=== PATIENT | female | born 1970 | race Caucasian/White ===

== ENCOUNTER → 2020-10-28 | Outpatient (CLI) | payer OTHER ==
[~2020-10-28] MED LIST: BACL-19 PO; BENA40TA3 PO; BIOT10004 PO; CHOL10003 PO; FURO-93 PO; LEVO75TA5 PO; MONT10TA17 PO; PREG50CA PO; vicoprofen PO
[2020-10-28 15:34] LABS: MICROSCOPIC NOT IND
[2020-10-28 15:44] LABS: BASOPHILS % (AUTO) 1 % (0-1); EOSINOPHILS % (AUTO) 2 % (1-7); LYMPHOCYTES % (AUTO) 32 % (22-44); MEAN CORPUSCULAR HEMOGLOBIN 28.7 pg (27.0-34.8); MEAN CORPUSCULAR HGB CONC 33.7 g/dL (32.4-35.8); MEAN PLATELET VOLUME 10.4 fL (7.4-10.4); MONOCYTES % (AUTO) 6 % (2-9); NEUTROPHILS % (AUTO) 59 % (42-75); PLATELET COUNT 180 x10^3/uL (130-400); RED BLOOD COUNT 5.29 x10^6/uL (3.82-5.3); RED CELL DISTRIBUTION WIDTH 14.3 % (9.6-15.2)
[2020-10-28 15:45] LABS: ALANINE AMINOTRANSFERASE 30 U/L (12-78); ALBUMIN 3.3 g/dL (3.4-5.0); ANION GAP 9 mmol/L (5-15); CALCIUM 9.6 mg/dL (8.5-10.1); CHLORIDE 107 mmol/L (98-107); CREATININE 0.72 mg/dL (0.55-1.02)
[2020-10-28 15:47] LABS: ALKALINE PHOSPHATASE 85 U/L (45-117); BILIRUBIN,TOTAL 0.5 mg/dL (0.2-1.0); TOTAL PROTEIN 7.2 g/dL (6.4-8.2)
[2020-10-28 16:13] LABS: INTERNATIONAL NORMALIZED RATIO 1.01 (0.93-1.1); PROTHROMBIN TIME 10.8 Seconds (9.6-11.5)
== END | disposition home or self-care (01) ==
LOC: STAR 14:24
PROVIDERS: ATTEND Neurological Surgery
DX: Z01.810 Encounter for preprocedural cardiovascular examination (principal); Z01.811 Encounter for preprocedural respiratory examination; Z01.812 Encounter for preprocedural laboratory examination; M54.16 Radiculopathy, lumbar region; R79.1 Abnormal coagulation profile; M43.16 Spondylolisthesis, lumbar region; R82.90 Unspecified abnormal findings in urine; R94.31 Abnormal electrocardiogram [ECG] [EKG]; R00.1 Bradycardia, unspecified
CPT/HCPCS: 36415; 71046; 80053; 81003; 83036; 85025; 85610; 85730; 93005

== ENCOUNTER 2020-11-10 08:47 | Inpatient (IN) | payer OTHER ==
[~2020-11-10] VITALS: Ht 170.2 cm; Wt 100.4 kg
[~2020-11-10 08:47] MED LIST changes: +CEFAZOLIN 1,000 MG ONE; +EPINEPHRINE 1 MG/ML, 1ML ONE; +VANCOMYCIN 1,000 MG ONE
[2020-11-10 09:24] VITALS: BP 143/95
[2020-11-10] MEDS ORDERED: LACTATED RINGERS 1,000 ML IV SCH (10:00)
[2020-11-10] MEDS ORDERED: CHLORHEXIDINE 15 ML UDC PO ONE (10:00)
[2020-11-10 10:08] LABS: HCG UR SG 1.023 (1.003-1.030)
[2020-11-10] MEDS ORDERED: FENTANYL PF 100 MCG/2ML ONE ×3 (10:41→13:29)
[2020-11-10] MEDS ORDERED: MIDAZOLAM 1 MG/ML, 2ML ONE (10:41)
[2020-11-10] MEDS ORDERED: PROPOFOL 10 MG/ML, 20ML ONE (10:51)
[2020-11-10] MEDS ORDERED: NEOSTIGMINE 1 MG/ML, 10ML ONE (10:51)
[2020-11-10] MEDS ORDERED: PROPOFOL 50 ML ONE ×3 (10:51→12:22)
[2020-11-10] MEDS ORDERED: ROCURONIUM 10MG/ML,5ML ONE (10:51)
[2020-11-10] MEDS ORDERED: SUCCINYLCHOLINE 20 MG/ML, 10ML ONE (10:51)
[2020-11-10] MEDS ORDERED: CEFAZOLIN 1,000 MG ONE (10:51)
[2020-11-10] MEDS ORDERED: GLYCOPYRROLATE 0.2MG/1ML, 5ML ONE (10:51)
[2020-11-10] MEDS ORDERED: ONDANSETRON 2MG/ML, 2ML ONE (10:51)
[2020-11-10] MEDS ORDERED: DEXAMETHASONE 4 MG/ML, 1ML ONE (10:51)
[2020-11-10] MEDS ORDERED: OXYcodone 5 MG/5 ML ORAL.SOL UDC PO PRN (11:00)
[2020-11-10] MEDS ORDERED: METHOCARBAMOL 1,000 MG in DEXTROSE 5% 100 ML IV PRN (11:00)
[2020-11-10] MEDS ORDERED: ACETAMINOPHEN 325 MG TABLET PO PRN (11:00)
[2020-11-10] MEDS ORDERED: HYDROcodone/APAP 7.5-325MG/15ML UDC PO PRN (11:00)
[2020-11-10] MEDS ORDERED: PROMETHAZINE 25 MG/ML, 1ML IVPush PRN (11:00)
[2020-11-10] MEDS ORDERED: ONDANSETRON 2MG/ML, 2ML IVPush PRN ×2 (11:00→13:30)
[2020-11-10] MEDS: BUPIVACAINE/PF 0.5% ONE (12:18)
[2020-11-10] MEDS: GENTAMICIN 80 MG/2 ML ONE (12:20)
[2020-11-10] MEDS ORDERED: ALBUTEROL HFA 90 MCG/SPRAY ONE (13:10)
[2020-11-10] MEDS ORDERED: morphine SULFATE 10 MG/ML, 1ML ONE ×2 (13:29→14:16)
[2020-11-10] MEDS ORDERED: morphine SULFATE 10 MG/ML, 1ML IVPush PRN (13:30)
[2020-11-10] MEDS ORDERED: FUROSEMIDE 20 MG TABLET PO PRN (13:30)
[2020-11-10] MEDS ORDERED: MAGNESIUM HYDROXIDE 8%, 30ML UDC PO PRN (13:30)
[2020-11-10] MEDS ORDERED: BISACODYL 10 MG SUPP PR PRN (13:30)
[2020-11-10] MEDS ORDERED: NICOTINE 21 MG/24 HR PATCH.TD24 TD ONE (13:30)
[2020-11-10] MEDS ORDERED: DIPHENHYDRAMINE 50 MG/ML, 1ML IM PRN (13:30)
[2020-11-10] MEDS ORDERED: METHOCARBAMOL 1,000 MG in DEXTROSE 5% 100 ML IV ONE (13:30)
[2020-11-10] MEDS: FENTANYL PF 100 MCG/2ML IV PRN ×2 (13:30→13:35)
[2020-11-10] MEDS ORDERED: DIAZEPAM 5 MG/ML, 2ML ONE (13:30)
[2020-11-10] MEDS ORDERED: HYDROcodone/APAP 10/325 MG TABLET PO PRN (13:30)
[2020-11-10] MEDS ORDERED: DIPHENHYDRAMINE 50 MG CAPSULE PO PRN (13:30)
[2020-11-10] MEDS ORDERED: OXYcodone 5 MG/5 ML ORAL.SOL UDC ONE (13:30)
[2020-11-10] MEDS ORDERED: DIPHENHYDRAMINE 50 MG/ML, 1ML IVPush PRN (13:30)
[2020-11-10] MEDS ORDERED: SENNA/DOCUSATE TABLET PO PRN (13:30)
[2020-11-10] MEDS ORDERED: LABETALOL 5MG/ML, 20ML IVPush PRN (13:30)
[2020-11-10] MEDS ORDERED: PROMETHAZINE 25 MG/ML, 1ML IM PRN (13:30)
[2020-11-10] MEDS ORDERED: PHARMACY MAY ADJ FOR RENAL FX MC PRN (13:30)
[2020-11-10] MEDS: DIAZEPAM 5 MG/ML, 2ML IVPush PRN ×2 (13:35→13:50)
[2020-11-10] MEDS: morphine SULFATE 10 MG/ML, 1ML IVPush PRN ×2 (13:45→13:50)
[2020-11-10] MEDS ORDERED: D5%-0.9% NACL+KCL 20MEQ 1,000 ML IV SCH (15:30)
[2020-11-10] MEDS ORDERED: CEFAZOLIN PMX 1GM/50ML 50 ML IVPB SCH (16:00)
[2020-11-10] MEDS ORDERED: MONTELUKAST 10 MG TABLET PO SCH (21:00)
[2020-11-10] MEDS ORDERED: PREGABALIN 50 MG CAP PO SCH (21:00)
[2020-11-10] MEDS ORDERED: BENAZEPRIL 20 MG TABLET PO SCH (21:00)
[2020-11-10] MEDS ORDERED: LEVOTHYROXINE 75 MCG TABLET PO SCH (21:00)
[2020-11-10] MEDS ORDERED: METHOCARBAMOL 750 MG in DEXTROSE 5% 100 ML IV PRN (21:30)
[2020-11-11] MEDS: BUPIVACAINE/PF 0.5% ONE (13:24)
[2020-11-11] MEDS: GENTAMICIN 80 MG/2 ML ONE (13:24)
[2020-11-12] MEDS ORDERED: METHOCARBAMOL 750 MG TABLET PO SCH (21:30)
== END 2020-11-10 15:25 | disposition home or self-care (01) | DRG 460 ==
LOC: ORIP 08:47 → 4NE 14:53
PROVIDERS: ADMIT Neurological Surgery; ATTEND Neurological Surgery
PROC: 0SG00K0 Fusion of Lumbar Vertebral Joint with Nonautologous Tissue Substitute, Anterior Approach, Anterior Column, Open Approach (ICD-10-PCS; 2020-11-10)
PROC: 4A11X4G Monitoring of Peripheral Nervous Electrical Activity, Intraoperative, External Approach (ICD-10-PCS; 2020-11-10)
PROC: 0SG00A0 Fusion of Lumbar Vertebral Joint with Interbody Fusion Device, Anterior Approach, Anterior Column, Open Approach (ICD-10-PCS; principal; 2020-11-10 11:00)
DX: M43.16 Spondylolisthesis, lumbar region (principal); M51.16 Intervertebral disc disorders with radiculopathy, lumbar region; M53.2X6 Spinal instabilities, lumbar region
CPT/HCPCS: 72100; S0020; 81025; 82962; 86850; 86900; G0378; J0171; J0690; J1100; J2250; J2405; J2704; J2710; J3010; J3360; J3370; J0330; J1580; J2270; J2800; J7120

== ENCOUNTER 2020-11-10 15:30 | Inpatient (IN) | payer OTHER ==
[~2020-11-10] VITALS: Ht 162.6 cm; Wt 111.7 kg
[~2020-11-10 15:30] MED LIST changes: -CEFAZOLIN 1,000 MG ONE; -EPINEPHRINE 1 MG/ML, 1ML ONE; -VANCOMYCIN 1,000 MG ONE
[2020-11-10] MEDS ORDERED: ONDANSETRON 2MG/ML, 2ML IVPush PRN (16:30)
[2020-11-10] MEDS ORDERED: LABETALOL 5MG/ML, 20ML IVPush PRN (16:30)
[2020-11-10] MEDS ORDERED: NICOTINE 21 MG/24 HR PATCH.TD24 TD ONE (16:30)
[2020-11-10] MEDS ORDERED: PHARMACY MAY ADJ FOR RENAL FX MC PRN (16:30)
[2020-11-10] MEDS ORDERED: DIPHENHYDRAMINE 50 MG/ML, 1ML IM PRN (16:30)
[2020-11-10] MEDS ORDERED: MAGNESIUM HYDROXIDE 8%, 30ML UDC PO PRN (16:30)
[2020-11-10] MEDS ORDERED: morphine SULFATE/PF 0.5 MG/ML, 10ML IV PRN (16:30)
[2020-11-10] MEDS ORDERED: DIPHENHYDRAMINE 50 MG/ML, 1ML IVPush PRN (16:30)
[2020-11-10] MEDS: D5%-0.9% NACL+KCL 20MEQ 1,000 ML IV SCH (16:30)
[2020-11-10] MEDS ORDERED: DIPHENHYDRAMINE 50 MG CAPSULE PO PRN (16:30)
[2020-11-10] MEDS ORDERED: HYDROmorphone 1 MG/ML, 1ML INJ IVPush PRN (16:30)
[2020-11-10] MEDS ORDERED: SENNA/DOCUSATE TABLET PO PRN (16:30)
[2020-11-10] MEDS ORDERED: BISACODYL 10 MG SUPP PR PRN (16:30)
[2020-11-10] MEDS ORDERED: PROMETHAZINE 25 MG/ML, 1ML IM PRN (16:30)
[2020-11-10] MEDS ORDERED: METHOCARBAMOL 750 MG TABLET PO PRN (16:30)
--- NOTE | 2020-11-10 17:15 | NUR ---
PT APPARENTLY LEFT SURGICAL FLOOR POST BACK SURGERY. PT RETURNED TO ER AND ASKED TO STAY. ADMIT ORDER PUT IN ON PT BY DR. JASON CAMPA. PT TAKEN DIRECTLY BACK TO FLOOR
[2020-11-10] MEDS: HYDROcodone/APAP 10/325 MG TABLET PO PRN ×2 (19:18→20:05)
[2020-11-10 19:33] VITALS: BP 123/76
[2020-11-10] MEDS: CEFAZOLIN PMX 1GM/50ML 50 ML IVPB SCH (19:51)
[2020-11-10] MEDS: SODIUM CHLORIDE FLUSH 10ML SYR IVF SCH (21:00)
[2020-11-10] MEDS: PREGABALIN 25 MG CAPSULE PO SCH (22:28)
[2020-11-10] MEDS: BENAZEPRIL 20 MG TABLET PO SCH (22:28)
[2020-11-10] MEDS: MONTELUKAST 10 MG TABLET PO SCH (22:28)
[2020-11-10] MEDS: LEVOTHYROXINE 75 MCG TABLET PO SCH (22:29)
[2020-11-11] VITALS: BP 107/84
[2020-11-11] MEDS: morphine SULFATE 10 MG/ML, 1ML IVPush PRN ×6 (00:10→20:48)
[2020-11-11] MEDS: CEFAZOLIN PMX 1GM/50ML 50 ML IVPB SCH ×2 (03:39→20:48)
[2020-11-11 03:41] VITALS: BP 104/57
[2020-11-11] MEDS ORDERED: GENTAMICIN 80 MG/2 ML ONE (06:43)
[2020-11-11] MEDS ORDERED: BUPIVACAINE/PF 0.5% ONE (06:43)
[2020-11-11] MEDS ORDERED: EPINEPHRINE 1 MG/ML, 1ML ONE (06:43)
[2020-11-11] MEDS ORDERED: VANCOMYCIN 1,000 MG ONE (06:43)
[2020-11-11 07:45] VITALS: BP 93/57
[2020-11-11] MEDS: SODIUM CHLORIDE FLUSH 10ML SYR IVF SCH ×2 (09:00→20:45)
[2020-11-11] MEDS: D5%-0.9% NACL+KCL 20MEQ 1,000 ML IV SCH (11:03)
[2020-11-11] MEDS ORDERED: PROPOFOL 100 ML ONE (11:58)
[2020-11-11] MEDS ORDERED: FENTANYL PF 250 MCG/5ML ONE (11:58)
[2020-11-11] MEDS ORDERED: CHLORHEXIDINE 15 ML UDC ONE (12:11)
[2020-11-11] MEDS ORDERED: DEXMEDETOMIDINE 200 MCG/2 ML ONE (12:31)
[2020-11-11] MEDS ORDERED: HALOPERIDOL 5 MG/ML IV PRN (14:00)
[2020-11-11] MEDS ORDERED: LABETALOL 5MG/ML, 20ML IV PRN (14:00)
[2020-11-11] MEDS ORDERED: hydrALAzine 20 MG/ML, 1ML IV PRN (14:00)
[2020-11-11] MEDS ORDERED: METOPROLOL 1 MG/ML, 5ML IV PRN (14:00)
[2020-11-11] MEDS ORDERED: ALBUTEROL/IPRATROPIUM 2.5MG/0.5MG, 3 ML NPPB PRN (14:00)
[2020-11-11] MEDS ORDERED: ONDANSETRON 2MG/ML, 2ML IVPush PRN (14:00)
[2020-11-11] MEDS ORDERED: METHOCARBAMOL 1,000 MG in DEXTROSE 5% 100 ML IV PRN (14:00)
[2020-11-11] MEDS ORDERED: HYDROmorphone 1 MG/ML, 1ML INJ IVPush PRN (14:00)
[2020-11-11] MEDS ORDERED: LORazepam 2 MG/ML, 1ML IVPush PRN (14:00)
[2020-11-11] MEDS ORDERED: OXYcodone 5 MG/5 ML ORAL.SOL UDC PO PRN (14:00)
[2020-11-11] MEDS ORDERED: FENTANYL PF 100 MCG/2ML IV PRN (14:00)
[2020-11-11] MEDS ORDERED: PROMETHAZINE 25 MG/ML, 1ML IVPush PRN (14:00)
[2020-11-11] MEDS ORDERED: PROMETHAZINE 25 MG SUPP PR PRN (14:00)
[2020-11-11] MEDS ORDERED: MEPERIDINE/PF 25MG/0.5ML IVPush PRN (14:00)
[2020-11-11] MEDS ORDERED: ACETAMINOPHEN 325 MG TABLET PO PRN (14:00)
[2020-11-11] MEDS ORDERED: FENTANYL PF 100 MCG/2ML ONE (14:36)
[2020-11-11] MEDS ORDERED: DIAZEPAM 5 MG/ML, 2ML ONE (14:36)
[2020-11-11] MEDS ORDERED: HYDROmorphone 2 MG/ML, 1ML ONE (14:36)
[2020-11-11] MEDS ORDERED: OXYcodone 5 MG/5 ML ORAL.SOL UDC ONE (14:37)
[2020-11-11] MEDS ORDERED: CEFAZOLIN 1,000 MG ONE (14:47)
[2020-11-11] MEDS ORDERED: SUCCINYLCHOLINE 20 MG/ML, 10ML ONE (14:47)
[2020-11-11] MEDS ORDERED: PROPOFOL 10 MG/ML, 20ML ONE (14:47)
[2020-11-11] MEDS ORDERED: GLYCOPYRROLATE 0.2MG/1ML, 5ML ONE (14:47)
[2020-11-11] MEDS ORDERED: NEOSTIGMINE 1 MG/ML, 10ML ONE (14:47)
[2020-11-11] MEDS ORDERED: ONDANSETRON 2MG/ML, 2ML ONE (14:47)
[2020-11-11] MEDS ORDERED: DEXAMETHASONE 4 MG/ML, 1ML ONE (14:47)
[2020-11-11] MEDS ORDERED: ROCURONIUM 10MG/ML,5ML ONE (14:47)
[2020-11-11] MEDS ORDERED: morphine SULFATE 10 MG/ML, 1ML ONE (14:55)
[2020-11-11] MEDS ORDERED: METHOCARBAMOL 1,000 MG in DEXTROSE 5% 100 ML IV ONE (15:00)
[2020-11-11] MEDS ORDERED: PROMETHAZINE 25 MG/ML, 1ML IM PRN (15:00)
[2020-11-11] MEDS ORDERED: morphine SULFATE 10 MG/ML, 1ML IVPush PRN (15:00)
[2020-11-11] MEDS ORDERED: MAGNESIUM HYDROXIDE 8%, 30ML UDC PO PRN (15:00)
[2020-11-11] MEDS ORDERED: DIPHENHYDRAMINE 50 MG/ML, 1ML IM PRN (15:00)
[2020-11-11] MEDS ORDERED: KETOROLAC 30 MG/1 ML IVPush ONE (15:00)
[2020-11-11] MEDS ORDERED: DIPHENHYDRAMINE 50 MG CAPSULE PO PRN (15:00)
[2020-11-11] MEDS ORDERED: PHARMACY MAY ADJ FOR RENAL FX MC PRN (15:00)
[2020-11-11] MEDS ORDERED: DIPHENHYDRAMINE 50 MG/ML, 1ML IVPush PRN (15:00)
[2020-11-11] MEDS ORDERED: LABETALOL 5MG/ML, 20ML IVPush PRN (15:00)
[2020-11-11] MEDS ORDERED: BISACODYL 10 MG SUPP PR PRN (15:00)
[2020-11-11] MEDS ORDERED: DIAZEPAM 5 MG/ML, 2ML IVPush PRN (15:30)
[2020-11-11] MEDS ORDERED: ENOXAPARIN 40 MG/0.4 ML SQ SCH (15:30)
[2020-11-11] MEDS: INSULIN REGULAR 100 UNITS/ML, 3ML VIAL SQ-INSULIN PRN (16:43)
[2020-11-11] MEDS ORDERED: HYDROmorphone 1 MG/ML, 1ML INJ ONE (18:48)
[2020-11-11 19:33] VITALS: BP 102/55
[2020-11-11] MEDS: LEVOTHYROXINE 75 MCG TABLET PO SCH (20:46)
[2020-11-11] MEDS: MONTELUKAST 10 MG TABLET PO SCH (20:46)
[2020-11-11] MEDS: BENAZEPRIL 20 MG TABLET PO SCH (21:00)
[2020-11-11] MEDS: PREGABALIN 25 MG CAPSULE PO SCH (21:41)
[2020-11-11] MEDS ORDERED: METHOCARBAMOL 750 MG in DEXTROSE 5% 100 ML IV PRN (23:00)
[2020-11-12 00:17] VITALS: BP 113/67
[2020-11-12] MEDS: morphine SULFATE 10 MG/ML, 1ML IVPush PRN ×4 (01:45→13:17)
[2020-11-12] MEDS: BENAZEPRIL 20 MG TABLET PO SCH (01:46)
[2020-11-12 02:14] VITALS: BP 117/68
[2020-11-12 04:24] VITALS: BP 113/66
[2020-11-12] MEDS: CEFAZOLIN PMX 1GM/50ML 50 ML IVPB SCH (05:16)
[2020-11-12] MEDS: D5%-0.9% NACL+KCL 20MEQ 1,000 ML IV SCH (07:05)
[2020-11-12] MEDS: INSULIN REGULAR 100 UNITS/ML, 3ML VIAL SQ-INSULIN PRN (07:06)
[2020-11-12] MEDS: SODIUM CHLORIDE FLUSH 10ML SYR IVF SCH (08:08)
[2020-11-12 08:12] VITALS: BP 108/63
[2020-11-12] MEDS: HYDROcodone/APAP 10/325 MG TABLET PO PRN (08:13)
[2020-11-12] MEDS ORDERED: OXYC1TAB17 PO (08:18)
[2020-11-12] MEDS ORDERED: PREG50CA PO (08:18)
[2020-11-12] MEDS ORDERED: OXYcodone/APAP 7.5/325MG TABLET PO PRN (08:30)
[2020-11-12] MEDS ORDERED: NICOTINE 21 MG/24 HR PATCH.TD24 TD SCH (09:00)
[2020-11-12 12:23] VITALS: BP 119/74
[2020-11-13] MEDS ORDERED: METHOCARBAMOL 750 MG TABLET PO SCH (23:00)
== END 2020-11-12 14:30 | disposition home or self-care (01) | DRG 460 ==
LOC: ED 16:48 → EDIP 16:49 → 4NE 17:20
PROVIDERS: ADMIT Neurological Surgery; ATTEND Neurological Surgery
PROC: 0SG0071 Fusion of Lumbar Vertebral Joint with Autologous Tissue Substitute, Posterior Approach, Posterior Column, Open Approach (ICD-10-PCS; 2020-11-11)
PROC: 01NB0ZZ Release Lumbar Nerve, Open Approach (ICD-10-PCS; 2020-11-11)
PROC: 8E0WXBG Computer Assisted Procedure of Trunk Region, With Computerized Tomography (ICD-10-PCS; 2020-11-11)
PROC: 4A11X4G Monitoring of Peripheral Nervous Electrical Activity, Intraoperative, External Approach (ICD-10-PCS; principal; 2020-11-11 12:30)
DX: M51.16 Intervertebral disc disorders with radiculopathy, lumbar region (principal); M43.16 Spondylolisthesis, lumbar region; M47.26 Other spondylosis with radiculopathy, lumbar region; M48.061 Spinal stenosis, lumbar region without neurogenic claudication; M53.2X6 Spinal instabilities, lumbar region; Z88.0 Allergy status to penicillin; Z88.5 Allergy status to narcotic agent; Z88.1 Allergy status to other antibiotic agents; Z82.49 Family history of ischemic heart disease and other diseases of the circulatory system; Z83.3 Family history of diabetes mellitus
CPT/HCPCS: 72100; 99285; S0020; 72131; 82962; 95938; 95941; C1713; G0378; J0171; J0690; J1100; J1170; J1650; J1815; J1885; J2405; J2704; J2710; J3010; J3360; J3370; J0330; J1580; J2270; J2800